=== PATIENT | male | born 1945 | race African-American/Black ===

== ENCOUNTER 2017-10-12 05:50 | Day surgery (SDC) | payer OTHER, BC ==
[~2017-10-12] VITALS: Ht 188 cm; Wt 108.9 kg
[2017-10-12] MEDS ORDERED: KETOROLAC TROMETHAMINE 30 MG VIAL IM PRN (09:30)
[2017-10-12] MEDS ORDERED: ONDANSETRON HCL 4 MG/2 ML VIAL IVP ONE ×2 (09:30→10:19)
[2017-10-12] MEDS ORDERED: NALOXONE HCL 0.4 MG/ML AMP (NARCAN) IVP ONE (09:30)
[2017-10-12] MEDS ORDERED: MIDAZOLAM HCL 5 MG/5 ML VIAL IVP PRN (09:30)
[2017-10-12] MEDS ORDERED: LABETALOL 100 MG/ 20ML VIAL IVP PRN (09:30)
[2017-10-12] MEDS ORDERED: MEPERIDINE HCL/PF 25 MG/ML DISP.SYRIN IVP PRN (09:30)
[2017-10-12] MEDS ORDERED: fentaNYL CITRATE/PF 100 MCG/2 ML AMP IVP PRN (09:30)
[2017-10-12] MEDS ORDERED: HYDROmorphone 1 MG INJ. 1 MG/ML AMPUL IVP PRN (09:30)
[2017-10-12] MEDS ORDERED: NS 1000 ML BAG IV ONE (10:19)
[2017-10-12] MEDS ORDERED: SUCCINYLCHOLINE CHLORIDE 20 MG/ML(QUELICIN) IVP ONE (10:19)
[2017-10-12] MEDS ORDERED: NS IRRIG SOLN 1000 ML IR ONE (10:19)
[2017-10-12] MEDS ORDERED: BACITRACIN 1 GM OINT TP ONE (10:19)
[2017-10-12] MEDS ORDERED: LR 1,000 ML IV.SOLN IV ONE (10:19)
[2017-10-12] MEDS ORDERED: PHENYLEPHRINE HCL 10 MG/ML VIAL (NEOSYNEPHRINE) IV ONE (10:19)
[2017-10-12] MEDS ORDERED: LIDOCAINE/EPI 1% 1:100000 20 ML VIAL INJ ONE (10:19)
[2017-10-12] MEDS ORDERED: ROCURONIUM BROMIDE 10 MG/ML (ZEMURON) IV ONE (10:19)
[2017-10-12] MEDS ORDERED: OXYMETAZOLINE HCL 0.05% NASAL SPRAY NS ONE (10:19)
[2017-10-12] MEDS ORDERED: NS 250 ML BAG IV ONE (10:19)
[2017-10-12] MEDS ORDERED: LIDOCAINE 1% 10 MG/ML, 20 ML MDV INJ ONE (10:19)
[2017-10-12] MEDS ORDERED: PROPOFOL 200MG/ 20ML VIAL (DIPRIVAN) IV ONE (10:19)
[2017-10-12] MEDS ORDERED: fentaNYL CITRATE 250 MCG/5 ML AMP IV ONE (10:19)
[2017-10-12] MEDS ORDERED: SEVOFLURANE 15 MIN GAS INH ONE (10:19)
[2017-10-12] MEDS ORDERED: GLYCOPYRROLATE 0.2 MG/ML VIAL IJ ONE (10:19)
[2017-10-12] MEDS ORDERED: LEVOFLOXACIN 500 MG/D5W 100 ML PIGGYBACK IV ONE (10:19)
[2017-10-12] MEDS ORDERED: MEPERIDINE HCL/PF 100 MG/ML AMP IM ONE (10:19)
[2017-10-12] MEDS ORDERED: WATER FOR IRRIGATION,STERILE 1,000 ML IRRIG.SOLN IR ONE (10:19)
[2017-10-12] MEDS ORDERED: EPINEPHrine 1 MG/ML AMP IV ONE (10:19)
[2017-10-12] MEDS ORDERED: MIDAZOLAM HCL 5 MG/ML VIAL (VERSED) IV ONE (10:19)
[2017-10-12] MEDS ORDERED: DEXAMETHASONE SOD PHOSPHATE 4 MG/ML VIAL IVP ONE (10:19)
[2017-10-12] MEDS ORDERED: MUPIROCIN 2% TOPICAL OINTMENT 22 GM TP ONE (10:19)
[2017-10-12] MEDS ORDERED: ePHEDrine sulfate 50 MG/ML VIAL IVP ONE (10:19)
[2017-10-12 11:31] VITALS: BP_SYST 123
== END 2017-10-12 13:25 | disposition home or self-care (01) ==
LOC: SMU 05:50 → SDS 05:50
PROVIDERS: ATTEND Otolaryngology
DX: J34.2 Deviated nasal septum (principal); J32.9 Chronic sinusitis, unspecified; J34.89 Other specified disorders of nose and nasal sinuses; Z87.891 Personal history of nicotine dependence; Z79.899 Other long term (current) drug therapy; Z68.30 Body mass index [BMI] 30.0-30.9, adult; J33.9 Nasal polyp, unspecified; D38.5 Neoplasm of uncertain behavior of other respiratory organs; E03.9 Hypothyroidism, unspecified; J45.20 Mild intermittent asthma, uncomplicated; N40.0 Benign prostatic hyperplasia without lower urinary tract symptoms; M19.90 Unspecified osteoarthritis, unspecified site; G89.29 Other chronic pain; E78.5 Hyperlipidemia, unspecified
CPT/HCPCS: 30140; 30520; 31255; 31295; 31297; 87070; 87075; 87101; 88305; 88311; C1726; J0171; J0330; J1100; J1956; J2001; J2175; J2250; J2370; J2405; J2704; J3010; J3490; J7030; J7050; J7120

== ENCOUNTER 2017-10-18 22:06 | Day surgery (SDC) | payer OTHER, BC ==
[~2017-10-18] VITALS: Ht 188 cm; Wt 108.4 kg
[~2017-10-18 22:06] MED LIST: LR 1,000 ML IV.SOLN IV ONE; MIDAZOLAM HCL 5 MG/5 ML VIAL IVP ONE; MUPIROCIN 2% TOPICAL OINTMENT 22 GM TP ONE; OXYMETAZOLINE HCL 0.05% NASAL SPRAY NS ONE; PROPOFOL 200MG/ 20ML VIAL (DIPRIVAN) IV ONE; ROCURONIUM BROMIDE 10 MG/ML (ZEMURON) IV ONE; SEVOFLURANE 15 MIN GAS INH ONE; SUCCINYLCHOLINE CHLORIDE 20 MG/ML(QUELICIN) IVP ONE; SUGAMMADEX SODIUM 200 MG/2 ML VIAL IV ONE; fentaNYL CITRATE 250 MCG/5 ML AMP IV ONE
[2017-10-18 22:08] VITALS: BP_SYST 139
[2017-10-18 22:37] LABS: BASOPHILS # (AUTO) 0.1 K/uL (0.0-0.2); BASOPHILS % (AUTO) 1.1 % (0.0-2.0); EOSINOPHILS # (AUTO) 0.4 K/uL (0.0-0.4); EOSINOPHILS % (AUTO) 6.6 % (0.0-4.0); HEMATOCRIT 38.3 % (36-54); HEMOGLOBIN 12.5 g/dL (14.0-18.0); LYMPHOCYTES # (AUTO) 1.7 K/uL (1.0-5.5); LYMPHOCYTES % (AUTO) 29.2 % (20.5-51.5); MEAN CORPUSCULAR HEMOGLOBIN 28 pg (27-31); MEAN CORPUSCULAR HGB CONC 33 % (32-36); MEAN CORPUSCULAR VOLUME 86 fL (79.0-98.0); MONOCYTES # (AUTO) 0.5 K/uL (0.0-1.0); MONOCYTES % (AUTO) 9.2 % (1.7-9.3); NEUTROPHILS # (AUTO) 3.1 K/uL (1.8-7.7); NEUTROPHILS % (AUTO) 53.9 % (40.0-70.0); PLATELET COUNT (AUTO) 289 K/uL (130-430); RED BLOOD CELL COUNT(AUTO) 4.45 MIL/uL (4.2-6.2); RED CELL DISTRIBUTION WIDTH 13.4 % (9.0-15.0); WHITE BLOOD COUNT (AUTO) 5.8 K/uL (4.8-10.8)
[2017-10-18] MEDS ORDERED: NACL 0.9% 1,000 ML IV ONE (23:45)
[2017-10-18] MEDS ORDERED: DIPHENHYDRAMINE HCL 25 MG CAPSULE PO PRN (23:45)
[2017-10-18] MEDS ORDERED: ACETAMINOPHEN 500 MG TABLET PO PRN (23:45)
[2017-10-18] MEDS ORDERED: ONDANSETRON 4 MG ODT TAB PO PRN (23:45)
[2017-10-19] VITALS (7 sets, daily range): BP systolic 134–147
[2017-10-19] MEDS ORDERED: OXYMETAZOLINE HCL 0.05% NASAL SPRAY NS ONE (00:33)
[2017-10-19] MEDS ORDERED: FLUT1DIS5 INH (02:03)
[2017-10-19] MEDS ORDERED: TAMS-11 PO (02:13)
[2017-10-19] MEDS ORDERED: LEVO137T2 PO ×2 (02:13)
[2017-10-19] MEDS: NORMAL SALINE 5 ML DISP.SYRIN IVF SCH ×2 (06:01→13:54)
[2017-10-19] MEDS ORDERED: LR 1,000 ML IV SCH (14:40)
[2017-10-19] MEDS ORDERED: MORPHINE 4 MG/ML INJ. SYRINGE IVP PRN ×3 (14:45)
[2017-10-19] MEDS ORDERED: METOCLOPRAMIDE HCL 10 MG/2 ML VIAL IVP PRN (14:45)
== END 2017-10-19 16:50 | disposition home or self-care (01) ==
LOC: SED 22:06 → UNDOADMOB 23:41 → SMU 23:41 → SDS 23:41 → SMU 10-19 → SDS 10-19 16:50 → UNDODISOB 10-19 16:50
PROVIDERS: ATTEND Otolaryngology
DX: R04.0 Epistaxis (principal); J45.909 Unspecified asthma, uncomplicated; E66.3 Overweight; E03.9 Hypothyroidism, unspecified; M19.90 Unspecified osteoarthritis, unspecified site; Z90.49 Acquired absence of other specified parts of digestive tract; Z98.890 Other specified postprocedural states
CPT/HCPCS: 31238; 36415; 85025; 96360; 96361; 99285; A4649; C9399; J0330; J2250; J2704; J3010; J7030; J7120; G0378

== ENCOUNTER 2022-07-07 05:20 | Day surgery (SDC) | payer OTHER, BC ==
[2022-07-06 13:31] LABS: BASOPHILS % (AUTO) 0.9 % (0.0-2.0); EOSINOPHILS # (AUTO) 0.3 K/uL (0.0-0.4); EOSINOPHILS % (AUTO) 6.1 % (0.0-4.0); HEMATOCRIT 41.7 % (36-54); HEMOGLOBIN 13.6 g/dL (14.0-18.0); LYMPHOCYTES # (AUTO) 1.6 K/uL (1.0-5.5); LYMPHOCYTES % (AUTO) 30.9 % (20.5-51.5); MEAN CORPUSCULAR HEMOGLOBIN 28 pg (27-31); MEAN CORPUSCULAR HGB CONC 33 % (32-36); MEAN CORPUSCULAR VOLUME 85 fL (79.0-98.0); MONOCYTES # (AUTO) 0.5 K/uL (0.0-1.0); MONOCYTES % (AUTO) 10.4 % (1.7-9.3); NEUTROPHILS # (AUTO) 2.7 K/uL (1.8-7.7); NEUTROPHILS % (AUTO) 51.7 % (40.0-70.0); PLATELET COUNT (AUTO) 192 K/uL (130-430); RED BLOOD CELL COUNT(AUTO) 4.93 MIL/uL (4.2-6.2); RED CELL DISTRIBUTION WIDTH 14.5 % (9.0-15.0); WHITE BLOOD COUNT (AUTO) 5.2 K/uL (4.8-10.8)
[2022-07-06 13:38] LABS: ANION GAP 6 (5-15); CHLORIDE 103 mmol/L (98-107); GLUCOSE 94 mg/dL (70-99); UREA NITROGEN, BLOOD 13 mg/dL (8-21)
[2022-07-06 13:42] LABS: ALANINE AMINOTRANSFERASE 29 U/L (12-78); ALBUMIN 3.7 g/dL (3.4-4.8); ASPARTATE AMINOTRANSFERASE 32 U/L (10-37); TOTAL BILIRUBIN 0.5 mg/dL (0.0-1.0)
[~2022-07-07] VITALS: Ht 188 cm; Wt 109.8 kg
[~2022-07-07 05:20] MED LIST changes: +FLUT1DIS5 INH; +LEVO137T2 PO; -LR 1,000 ML IV.SOLN IV ONE; -MIDAZOLAM HCL 5 MG/5 ML VIAL IVP ONE; -MUPIROCIN 2% TOPICAL OINTMENT 22 GM TP ONE; -OXYMETAZOLINE HCL 0.05% NASAL SPRAY NS ONE; -PROPOFOL 200MG/ 20ML VIAL (DIPRIVAN) IV ONE; -ROCURONIUM BROMIDE 10 MG/ML (ZEMURON) IV ONE; -SEVOFLURANE 15 MIN GAS INH ONE; -SUCCINYLCHOLINE CHLORIDE 20 MG/ML(QUELICIN) IVP ONE; -SUGAMMADEX SODIUM 200 MG/2 ML VIAL IV ONE; +TAMS-11 PO; -fentaNYL CITRATE 250 MCG/5 ML AMP IV ONE
[2022-07-07] MEDS ORDERED: ACETAMINOPHEN I.V. 1000 MG 100 ML IV ONE (07:43)
[2022-07-07] MEDS ORDERED: HYDROmorphone 1 MG/ML INJ. CARTRIDGE IVP PRN ×2 (09:00)
[2022-07-07] MEDS ORDERED: hydrALAZINE HCL 20 MG/ML VIAL IVP PRN (09:00)
[2022-07-07] MEDS ORDERED: LR 1,000 ML IV SCH (09:00)
[2022-07-07] MEDS ORDERED: METOCLOPRAMIDE HCL 10 MG/2 ML VIAL IVP PRN (09:00)
[2022-07-07] MEDS ORDERED: MEPERIDINE HCL/PF 25 MG/ML DISP.SYRIN IVP PRN (09:00)
[2022-07-07] MEDS ORDERED: LIDOCAINE/EPI 1% 1:100000 20 ML VIAL ONE (10:37)
[2022-07-07] MEDS ORDERED: PROPOFOL 200MG/ 20ML VIAL (DIPRIVAN) IV ONE (10:37)
[2022-07-07] MEDS ORDERED: EPINEPHrine HCL 1 MG/ML VIAL ONE (10:37)
[2022-07-07] MEDS ORDERED: ROCURONIUM BROMIDE 10 MG/ML (ZEMURON) ONE (10:37)
[2022-07-07] MEDS ORDERED: DEXAMETHASONE SOD PHOSPHATE 4 MG/ML VIAL ONE (10:37)
[2022-07-07] MEDS ORDERED: NS IRRIG SOLN 1000 ML IR ONE (10:37)
[2022-07-07] MEDS ORDERED: fentaNYL CITRATE/PF 100 MCG/2 ML AMP ONE (10:37)
[2022-07-07] MEDS ORDERED: NS 1000 ML IV.SOLN IV ONE (10:37)
[2022-07-07] MEDS ORDERED: MIDAZOLAM HCL 5 MG/ML VIAL (VERSED) IV ONE (10:37)
[2022-07-07] MEDS ORDERED: LIDOCAINE PF 2%, 40 MG/2 ML AMP INJ ONE (10:37)
[2022-07-07] MEDS ORDERED: SEVOFLURANE 15 MIN GAS INH ONE (10:37)
[2022-07-07] MEDS ORDERED: SUGAMMADEX SODIUM 200 MG/2 ML VIAL IV ONE (10:37)
[2022-07-07] MEDS ORDERED: LR 1,000 ML IV.SOLN IV ONE (10:37)
[2022-07-07] MEDS ORDERED: ONDANSETRON HCL 4 MG/2 ML VIAL ONE (10:37)
[2022-07-07 12:21] VITALS: BP_SYST 140
== END 2022-07-07 12:45 | disposition home or self-care (01) ==
LOC: SMU 05:20 → SDS 05:20
PROVIDERS: ATTEND Otolaryngology
DX: H65.03 Acute serous otitis media, bilateral (principal); D38.5 Neoplasm of uncertain behavior of other respiratory organs; J33.0 Polyp of nasal cavity; J34.2 Deviated nasal septum; H60.391 Other infective otitis externa, right ear; H90.3 Sensorineural hearing loss, bilateral; J30.1 Allergic rhinitis due to pollen; I25.10 Atherosclerotic heart disease of native coronary artery without angina pectoris; E78.5 Hyperlipidemia, unspecified; Z95.1 Presence of aortocoronary bypass graft; E66.9 Obesity, unspecified; E03.9 Hypothyroidism, unspecified; Z79.899 Other long term (current) drug therapy; Z20.822 Contact with and (suspected) exposure to COVID-19; Z68.31 Body mass index [BMI] 31.0-31.9, adult
CPT/HCPCS: 87081; 80053; 85025; 36415 ×2; 31298; 69436; 31255; 31256; 87070; 87075; 87186; 87101; 88305; 87426; J3490; J1100; J0171; J2001; J2250; J2405; J2704; J3010; J7120; J7030; L8699; C1726; J0131; 88304